=== PATIENT | female | born 1945 | race Caucasian/White ===

== ENCOUNTER 2018-01-27 05:24 | Observation (INO) | payer MEDICARE, OTHER ==
[2018-01-27] MEDS ORDERED: POVIDONE IODINE 10% 28.4 GM OINT (06:48)
[2018-01-27] MEDS ORDERED: SOD CHLORIDE 0.9% 1,000 ML IV (06:56)
[2018-01-27] MEDS ORDERED: ONDANSETRON 4 MG INJ IV ×2 (07:00→09:30)
[2018-01-27] MEDS ORDERED: EPHEDrine SULFATE 50 MG/5 ML SYG (07:00)
[2018-01-27] MEDS ORDERED: OXYCODONE/ACETAMINOPHEN (5/325) TAB PO ×3 (07:00→12:00)
[2018-01-27] MEDS ORDERED: PROPOFOL 20 ML (07:10)
[2018-01-27] MEDS ORDERED: LIDOCAINE 2% (SDV) 5 ML INJ (07:10)
[2018-01-27] MEDS ORDERED: MIDAZOLAM 1 MG/ML 2 ML INJ (07:10)
[2018-01-27] MEDS ORDERED: ROPIVACAINE 0.5 % 30 ML VIAL (07:11)
[2018-01-27] MEDS ORDERED: CEFAZOLIN 1 GM INJ ×2 (07:46→10:40)
[2018-01-27] MEDS ORDERED: ONDANSETRON 4 MG INJ (07:48)
[2018-01-27] MEDS ORDERED: DEXAMETHASONE 4 MG/ML 1 ML INJ (07:48)
[2018-01-27] MEDS ORDERED: FAMOTIDINE 20 MG INJ (07:48)
[2018-01-27] MEDS ORDERED: THROMBIN 5000 UNIT VIAL (08:18)
[2018-01-27] MEDS ORDERED: SUCCINYLCHOLINE CHLORIDE 100 MG/5 ML SYG IV (08:21)
[2018-01-27] MEDS ORDERED: ROCURONIUM 50 MG INJ (08:21)
[2018-01-27] MEDS ORDERED: LABETALOL HCL 20MG INJ IV (09:30)
[2018-01-27] MEDS ORDERED: DIPHENHYDRAMINE 50 MG INJ IV (09:30)
[2018-01-27] MEDS ORDERED: PROCHLORPERAZINE 10 MG INJ IV (09:30)
[2018-01-27] MEDS ORDERED: FENTAnyl 50 MCG/ML VIAL IV (09:30)
[2018-01-27] MEDS ORDERED: HYDROmorphONE (0.2 MG/ML) 10ML SYG IV ×3 (09:30)
[2018-01-27] MEDS ORDERED: MEPERIDINE 25 MG INJ IV (09:30)
[2018-01-27] MEDS ORDERED: hydrALAzine 20 MG INJ IV (09:30)
[2018-01-27] MEDS ORDERED: SUGAMMADEX SODIUM 200 MG/2 ML VIAL IV (10:35)
[2018-01-27] MEDS: GELATIN SIZE 100 SPONGE (10:37)
[2018-01-27] MEDS: THROMBIN 5000 UNIT VIAL (10:38)
[2018-01-27] MEDS: ROPIVACAINE 0.5 % 30 ML VIAL (10:38)
[2018-01-27] MEDS: POLYMYXIN/BACITRACIN 1L IRRIG (10:38)
[2018-01-27] MEDS ORDERED: ACETAMINOPHEN 1000MG/100ML IV 100 ML (10:46)
[2018-01-27] MEDS ORDERED: DIPHENHYDRAMINE 25 MG CAP PO (12:00)
[2018-01-27] MEDS ORDERED: morphine 10 MG INJ IV (12:00)
[2018-01-27] MEDS ORDERED: BISACODYL 10 MG SUPP PR (12:00)
[2018-01-27] MEDS ORDERED: CEFAZOLIN 1 GM INJ IV (12:00)
[2018-01-27] MEDS: HYDROmorphONE 0.2 MG/ML PCA IV (12:14)
[2018-01-27] MEDS: CEFAZOLIN 1 GM/50 ML (PMX) 50 ML IVPB ×2 (13:00→20:31)
[2018-01-27] MEDS: SENNA/DOCUSATE NA (8.6MG/50MG) TAB PO (20:31)
[2018-01-27] MEDS: SOD CHLORIDE 0.9% 1,000 ML IV ×2 (20:38→21:46)
[2018-01-28] MEDS: HYDROmorphONE 0.2 MG/ML PCA IV (02:59)
[2018-01-28] MEDS ORDERED: HYDROmorphONE 0.2 MG/ML PCA IV (03:30)
[2018-01-28] MEDS: CEFAZOLIN 1 GM/50 ML (PMX) 50 ML IVPB ×3 (05:31→20:39)
[2018-01-28] MEDS: OXYCODONE/ACETAMINOPHEN (5/325) TAB PO ×5 (06:56→23:11)
[2018-01-28] MEDS: SENNA/DOCUSATE NA (8.6MG/50MG) TAB PO ×2 (08:46→20:39)
[2018-01-28] MEDS: ONDANSETRON 4 MG INJ IV (11:06)
[2018-01-28] MEDS: RIVAROXABAN 10 MG TABLET PO (17:05)
[2018-01-29] MEDS: OXYCODONE/ACETAMINOPHEN (5/325) TAB PO ×3 (03:12→11:46)
[2018-01-29] MEDS: CEFAZOLIN 1 GM/50 ML (PMX) 50 ML IVPB (05:20)
[2018-01-29] MEDS: morphine 2 MG INJ IV (05:26)
[2018-01-29] MEDS: SENNA/DOCUSATE NA (8.6MG/50MG) TAB PO (08:23)
[2018-01-29] MEDS: DIAZEPAM 5 MG TAB PO (12:49)
[2018-01-29] MEDS ORDERED: DIAZEPAM 5 MG TAB PO (13:00)
[2018-01-29] MEDS ORDERED: MAGNESIUM HYDROXIDE 30ML CUP PO (21:00)
== END 2018-01-29 13:02 | disposition home or self-care (01) ==
LOC: SDS 05:24 → REC 11:46 → MS1 15:25
DX: M19.071 Primary osteoarthritis, right ankle and foot (principal); I10 Essential (primary) hypertension
CPT/HCPCS: 20900; 73630; 97116; 97162; 97530

== ENCOUNTER 2018-11-10 08:24 | Observation (INO) | payer MEDICARE, BC, OTHER ==
[~2018-11-10 08:24] MED LIST: LIDOCAINE 2% (SDV) 5 ML INJ
[2018-11-10] MEDS ORDERED: MIDAZOLAM 1 MG/ML 2 ML INJ (09:18)
[2018-11-10] MEDS ORDERED: BUPIVACAINE 0.5% (SDV) 30 ML INJ (09:19)
[2018-11-10] MEDS ORDERED: SUGAMMADEX SODIUM 200 MG/2 ML VIAL IV (09:37)
[2018-11-10] MEDS ORDERED: EPHEDrine 25 MG/5 ML SYG (09:38)
[2018-11-10] MEDS ORDERED: POVIDONE IODINE 10% 28.4 GM OINT (10:11)
[2018-11-10] MEDS: GELATIN SIZE 100 SPONGE (10:11)
[2018-11-10] MEDS: ROPIVACAINE 0.5 % 30 ML VIAL (10:11)
[2018-11-10] MEDS ORDERED: PROPOFOL 20 ML (10:23)
[2018-11-10] MEDS ORDERED: ROCURONIUM 50 MG INJ (10:31)
[2018-11-10] MEDS ORDERED: CEFAZOLIN 1 GM INJ (10:31)
[2018-11-10] MEDS ORDERED: ONDANSETRON 4 MG INJ ×2 (10:31→15:18)
[2018-11-10] MEDS ORDERED: DEXAMETHASONE 4 MG/ML 5 ML INJ (10:31)
[2018-11-10] MEDS ORDERED: LABETALOL HCL 20MG INJ (13:39)
[2018-11-10] MEDS ORDERED: NEOSTIGMINE 3 MG/3 ML SYRINGE (13:53)
[2018-11-10] MEDS ORDERED: GLYCOPYRROLATE 0.4 MG INJ (13:53)
[2018-11-10] MEDS ORDERED: KETOROLAC 30 MG INJ (14:16)
[2018-11-10] MEDS ORDERED: BISACODYL 10 MG SUPP PR (15:00)
[2018-11-10] MEDS ORDERED: DIPHENHYDRAMINE 25 MG CAP PO (15:00)
[2018-11-10] MEDS ORDERED: morphine 10 MG INJ IV (15:00)
[2018-11-10] MEDS ORDERED: ONDANSETRON 4 MG INJ IV ×2 (15:00→15:30)
[2018-11-10] MEDS ORDERED: HYDROmorphONE 0.2 MG/ML PCA IV (15:00)
[2018-11-10] MEDS: CEFAZOLIN 1 GM/50 ML (PMX) 50 ML IVPB ×2 (15:27→23:31)
[2018-11-10] MEDS ORDERED: OXYCODONE/ACETAMINOPHEN (5/325) TAB PO ×2 (15:30)
[2018-11-10] MEDS ORDERED: DIPHENHYDRAMINE 50 MG INJ IV (15:30)
[2018-11-10] MEDS ORDERED: ALBUTEROL 0.083% (NEB) 2.5 MG/3 ML AMP HHN (15:30)
[2018-11-10] MEDS ORDERED: EPHEDrine SULFATE 50 MG/5 ML SYG IV (15:30)
[2018-11-10] MEDS ORDERED: hydrALAzine 20 MG INJ IV (15:30)
[2018-11-10] MEDS ORDERED: MEPERIDINE 25 MG INJ IV (15:30)
[2018-11-10] MEDS ORDERED: LABETALOL HCL 20MG INJ IV (15:30)
[2018-11-10] MEDS ORDERED: MIDAZOLAM 1 MG/ML 2 ML INJ IV (15:30)
[2018-11-10] MEDS ORDERED: FENTAnyl 50 MCG/ML VIAL IV ×3 (15:30)
[2018-11-10] MEDS ORDERED: KETOROLAC 30 MG INJ IV (15:30)
[2018-11-10] MEDS ORDERED: HYDROmorphONE 1 MG/5 ML IV SYRINGE IV ×3 (15:30)
[2018-11-10] MEDS: SOD CHLORIDE 0.9% 1,000 ML IV ×2 (17:32→23:36)
[2018-11-10] MEDS: SENNA/DOCUSATE NA (8.6MG/50MG) TAB PO (20:47)
[2018-11-11] MEDS: OXYCODONE/ACETAMINOPHEN (5/325) TAB PO ×4 (02:44→15:58)
[2018-11-11] MEDS: CEFAZOLIN 1 GM/50 ML (PMX) 50 ML IVPB ×2 (06:00→14:11)
[2018-11-11] MEDS: SOD CHLORIDE 0.9% 1,000 ML IV (06:04)
[2018-11-11] MEDS: SENNA/DOCUSATE NA (8.6MG/50MG) TAB PO (09:51)
[2018-11-11] MEDS ORDERED: RIVAROXABAN 10 MG TABLET PO (17:55)
[2018-11-12] MEDS ORDERED: MAGNESIUM HYDROXIDE 30ML CUP PO (21:00)
== END 2018-11-11 16:41 | disposition home or self-care (01) ==
LOC: SDS 08:24 → REC 15:04 → MS1 16:43
DX: M19.072 Primary osteoarthritis, left ankle and foot (principal)
CPT/HCPCS: 20900; 73630-LT; 97116; 97162; 97530; 99217